=== PATIENT | female | born 1965 | race African-American/Black ===

== ENCOUNTER 2016-08-02 15:37 | Emergency (ER) | payer OTHER ==
[~2016-08-02] VITALS: Ht 177.8 cm; Wt 103.9 kg
[~2016-08-02 15:37] MED LIST: ACETAMINOPHEN-1 EAC1 ORAL; ALBUTEROL SULF8.5 GM INH; AMOXICILLIN500 MG ORAL; CLINDAMYCIN HC300 MG ORAL; IBUPROFEN600 MG ORAL; MEDROL DOSEPAK4 MG ORAL; NORCO 5-325 TA1 EACH ORAL; PEPCID AC20 M2 PO; PREDNISONE20 MG ORAL; ROBAXIN-750750 MG PO; ZOFRAN ODT4 MG ORAL
[2016-08-02 16:00] VITALS: BP 143/90
[2016-08-02] MEDS ORDERED: DiphenhydrAMINE 50mg/ml Inj IM ONE (16:00)
[2016-08-02] MEDS ORDERED: PredniSONE 20mg tab ORAL ONE (16:00)
[2016-08-02] MEDS ORDERED: BENADRYL25 MG ORAL (16:30)
[2016-08-02] MEDS ORDERED: PREDNISONE20 MG ORAL (16:30)
[2016-08-02 16:33] VITALS: BP 143/90
--- NOTE | 2016-08-02 17:50 | Emergency Room Report ---
History of Present Illness General Chief Complaint: Allergic Reaction Present Illness HPI The patient is a 50-year-old female presenting for possible allergic reaction. The patient states that she used a new hair dye 2 days prior and noticed that her face had swollen yesterday. The pt also admits to itching of the scalp and face. The patient states that she took one Benadryl which did help with the symptoms. The patient denies any prior allergic reaction to the product. The pt denies any pain. The patient denies using any other new products or ingesting any new foods that may have caused this reaction. The patient denies any other symptoms the rest of her body. Pt denies N, V, F, chills, cough, SOB, wheezing, CP Allergies: Coded Allergies: SHELLFISH DERIVED (Verified Allergy, 08/02/13) Patient History Past Medical History: see triage record Pertinent Family History: none Reviewed Nursing Documentation: PMH: Agreed, PSxH: Agreed Nursing Documentation-PMH Hx Asthma: Yes Review of Systems All Other Systems: negative except mentioned in HPI Physical Exam Vital Signs Date Time Temp Pulse Resp B/P Pulse Ox O2 Delivery O2 Flow Rate FiO2 08/02/16 15:44 98.2 81 20 143/90 97 Room Air Sp02 EP Interpretation: reviewed, normal General Appearance: no apparent distress, alert, GCS 15, non-toxic Head: normocephalic, atraumatic Eyes: bilateral eye PERRL, bilateral eye normal inspection ENT: hearing grossly normal, normal pharynx, no angioedema, normal voice, uvula midline, moist mucus membranes Neck: normal inspection, full range of motion, supple, supple/symm/no masses Respiratory: chest non-tender, lungs clear, normal breath sounds, no rhonchi, no respiratory distress, no accessory muscle use, no wheezing, speaking full sentences Cardiovascular #1: regular rate, rhythm, no murmur, no rub Gastrointestinal: normal bowel sounds, non tender, soft, non-distended, no guarding, no rebound Musculoskeletal: back normal, gait/station normal, normal range of motion, non- tender, calf tenderness Neurologic: alert, oriented x3, responsive, motor strength/tone normal, sensory intact, speech normal Psychiatric: judgement/insight normal, memory normal, mood/affect normal, no suicidal/homicidal ideation Skin: well hydrated, rash - erythema over scalp, other - edema periorbitally and over cheeks Lymphatic: no adenopathy Medical Decision Making PA Attestation Dr. Juarez is my supervising physician. Patient management was discussed with my supervising physician Diagnostic Impression: Primary Impression: Allergic reaction ER Course The patient is a 50-year-old female presenting for possible allergic reaction. Differential diagnosis considered: contact dermatitis, anaphylaxis, allergic rhinitis, asthma PE: vitals WNL. NAD There is erythema over the scalp diffusely. Edema periorbitally and of cheeks. No hives. No edema to neck. Oropharynx is patent. Lungs CTA bilat. The pt was given benadryl and prednisone and states she is feeling better. The patient be discharged home with the same medications. ER precautions are given and the patient will follow up with primary care Last Vital Signs Date Time Temp Pulse Resp B/P Pulse Ox O2 Delivery O2 Flow Rate FiO2 08/02/16 16:33 98.2 20 143/90 97 Room Air 08/02/16 15:44 81 Status: improved Disposition: HOME, SELF-CARE Condition: Improved Scripts Diphenhydramine Hcl* (BENADRYL*) 25 Mg Capsule 25 MG ORAL Q6H Y for Itching, #30 CAP Prov: TEX DAI.A. 08/02/16 Prednisone* (PREDNISONE*) 20 Mg Tablet 20 MG ORAL DAILY, #5 TAB 0 Refills Prov: TEX DAI P.A. 08/02/16 Referrals: [facility],REFERRING (PCP) Patient Instructions: Pruritus Additional Instructions: I discussed my findings with the patient. All questions and concerns have been answered. Treatment and medication compliance have been addressed. I advised the patient that they need to follow up with PMD in 3-5 days. Return to ED if symptoms worsen, new symptoms arise, or if needed for any reason. Patient verbalized understanding of discharge instructions. TEX DAI Aug 02, 2016 17:50
== END 2016-08-02 16:36 | disposition home or self-care (01) ==
LOC: EMR 16:05
DX: T78.40XA Allergy, unspecified, initial encounter (principal); J45.909 Unspecified asthma, uncomplicated; Z91.013 Allergy to seafood; X58.XXXA Exposure to other specified factors, initial encounter; Y92.9 Unspecified place or not applicable; Y99.8 Other external cause status
CPT/HCPCS: 96372; 99283; J1200

== ENCOUNTER 2016-12-19 18:23 | Emergency (ER) | payer OTHER ==
[~2016-12-19] VITALS: Ht 167.6 cm; Wt 104.3 kg
[~2016-12-19 18:23] MED LIST changes: +BENADRYL25 MG ORAL
[2016-12-19] MEDS ORDERED: Solu-MEDROL 125mg Inj IVP ONE (18:45)
[2016-12-19] MEDS ORDERED: Ipratropium 0.02% Inh Soln 2.5ml UD HHN ONE (18:45)
[2016-12-19] MEDS ORDERED: Albuterol ud Inhalation HHN ONE (18:45)
[2016-12-19 18:56] VITALS: BP 153/80
[2016-12-19 19:09] LABS: BASOPHILS % (AUTO) 2.5 % (0.0-2.0); EOSINOPHILS % (AUTO) 6.2 % (0.0-3.0); LYMPHOCYTES % (AUTO) 22.7 % (20.0-45.0); MEAN CORPUSCULAR HEMOGLOBIN 30.6 PG (27.0-31.0); MEAN CORPUSCULAR HGB CONC 32.6 G/DL (32.0-36.0); MEAN CORPUSCULAR VOLUME 94 FL (80-99); MEAN PLATELET VOLUME 6.2 FL (6.5-10.1); MONOCYTES % (AUTO) 6.5 % (1.0-10.0); NEUTROPHILS % (AUTO) 62.1 % (45.0-75.0); PLATELET COUNT 351 K/UL (150-450); RED BLOOD COUNT 4.28 M/UL (4.20-5.40); RED CELL DISTRIBUTION WIDTH 12.5 % (11.6-14.8); WHITE BLOOD COUNT 7.7 K/UL (4.8-10.8)
[2016-12-19 19:24] VITALS: BP 145/91
[2016-12-19 19:39] LABS: TROPONIN I < 0.30 ng/mL (<=0.30)
[2016-12-19 19:42] LABS: ALANINE AMINOTRANSFERASE 15 U/L (3-33); ALBUMIN/GLOBULIN RATIO 1.1 (1.0-2.7); ANION GAP 18 (5-15); ASPARTATE AMINO TRANSFERASE 15 U/L (5-40); CALCIUM 9.2 mg/dL (8.6-10.2); CARBON DIOXIDE 24 mEQ/L (20-30); CHLORIDE 95 mEQ/L (98-107); CREATININE 0.8 mg/dL (0.5-0.9); GLOMERULAR FILTRATION RATE > 60 mL/min (>60); HEMOLYSIS 0; POTASSIUM 3.9 mEQ/L (3.4-4.9); SODIUM 137 mEQ/L (135-145); TOTAL PROTEIN 7.6 g/dL (6.6-8.7)
[2016-12-19 19:53] LABS: CKMB 2.5 ng/mL (< 3.8)
[2016-12-19] MEDS ORDERED: ALBUTEROL2.5 MG/3 M HHN (20:02)
[2016-12-19] MEDS ORDERED: AZITHROMYCIN250 MG ORAL (20:02)
[2016-12-19] MEDS ORDERED: PREDNISONE20 MG ORAL (20:02)
[2016-12-19 20:12] VITALS: BP 145/91
--- NOTE | 2016-12-19 20:37 | Emergency Room Report ---
History of Present Illness General Chief Complaint: Chest Pain Source: Patient Present Illness HPI Patient presents with complaints of cough and congestion Patient reports that with the URI symptoms she has had increased use of her albuterol inhaler Having increased asthma exacerbation Patient has sick contacts Denies any neck pain or photophobia Denies any obvious fevers Patient had chest discomfort which sounds to be respiratory in pathology Denies any pleurisy Denies any recent travel or unilateral calf swelling Allergies: Coded Allergies: SHELLFISH DERIVED (Verified Allergy, 08/02/13) Patient History Past Medical History: see triage record Pertinent Family History: none Reviewed Nursing Documentation: PMH: Agreed, PSxH: Agreed Nursing Documentation-PMH Hx Asthma: Yes Review of Systems All Other Systems: negative except mentioned in HPI Physical Exam Vital Signs Date Time Temp Pulse Resp B/P Pulse Ox O2 Delivery O2 Flow Rate FiO2 12/19/16 18:50 82 20 99 Room Air 21 12/19/16 18:56 153/80 2.0 12/19/16 18:56 98.3 Sp02 EP Interpretation: reviewed, normal General Appearance: no apparent distress Head: normocephalic, atraumatic Eyes: bilateral eye EOMI, bilateral eye PERRL ENT: hearing grossly normal, normal pharynx, TMs + canals normal, uvula midline Neck: full range of motion, supple, no meningismus, no bony tend Respiratory: no rhonchi, no respiratory distress, no retraction, no accessory muscle use, wheezing - Fine wheezing in both lower lobes Cardiovascular #1: normal peripheral pulses, regular rate, rhythm, no gallop, no JVD, no murmur Gastrointestinal: normal bowel sounds, non tender, soft, no mass, no organomegaly, non-distended, no guarding, no hernia, no pulsatile mass, no rebound Genitourinary: no CVA tenderness Musculoskeletal: normal inspection Neurologic: oriented x3, responsive, principal archaeologist III-XII nml as tested, motor strength/ tone normal, sensory intact Psychiatric: mood/affect normal Skin: normal color, no rash, warm/dry, palpation normal Lymphatic: normal inspection, no adenopathy Medical Decision Making Diagnostic Impression: Primary Impression: atypical pneumonia ER Course Patient is a fairly complex patient with multiple differential to consideration including but not limited to cardiac cardiopulmonary and vascular emergencies Patient's chest x-ray does not show any obvious acute pathology Blood work is at baseline levels Patient's discomfort sounds to be more in line with infectious/pulmonary pathology than cardiac pain Remains hemodynamically stable In the distant will have initial conservative outpatient trial Labs Test 12/19/16 18:50 White Blood Count 7.7 K/UL (4.8-10.8) Red Blood Count 4.28 M/UL (4.20-5.40) Hemoglobin 13.1 G/DL (12.0-16.0) Hematocrit 40.2 % (37.0-47.0) Mean Corpuscular Volume 94 FL (80-99) Mean Corpuscular Hemoglobin 30.6 PG (27.0-31.0) Mean Corpuscular Hemoglobin Concent 32.6 G/DL (32.0-36.0) Red Cell Distribution Width 12.5 % (11.6-14.8) Platelet Count 351 K/UL (150-450) Mean Platelet Volume 6.2 FL (6.5-10.1) Neutrophils (%) (Auto) 62.1 % (45.0-75.0) Lymphocytes (%) (Auto) 22.7 % (20.0-45.0) Monocytes (%) (Auto) 6.5 % (1.0-10.0) Eosinophils (%) (Auto) 6.2 % (0.0-3.0) Basophils (%) (Auto) 2.5 % (0.0-2.0) Sodium Level 137 mEQ/L (135-145) Potassium Level 3.9 mEQ/L (3.4-4.9) Chloride Level 95 mEQ/L (98-107) Carbon Dioxide Level 24 mEQ/L (20-30) Anion Gap 18 (5-15) Blood Urea Nitrogen 12 mg/dL (7-23) Creatinine 0.8 mg/dL (0.5-0.9) Estimat Glomerular Filtration Rate > 60 mL/min (>60) Glucose Level 91 mg/dL (74-106) Calcium Level 9.2 mg/dL (8.6-10.2) Total Bilirubin < 0.2 mg/dL (0.0-1.2) Aspartate Amino Transf (AST/SGOT) 15 U/L (5-40) Alanine Aminotransferase (ALT/SGPT) 15 U/L (3-33) Alkaline Phosphatase 63 U/L (35-104) Total Creatine Kinase 229 U/L (26-140) Creatine Kinase MB 2.5 ng/mL (< 3.8) Creatine Kinase MB Relative Index 1.0 Troponin I < 0.30 ng/mL (<=0.30) Pro-B-Type Natriuretic Peptide 16 pg/mL (0-125) Total Protein 7.6 g/dL (6.6-8.7) Albumin 4.1 g/dL (3.5-5.2) Globulin 3.5 g/dL Albumin/Globulin Ratio 1.1 (1.0-2.7) EKG Diagnostic Results Rate: normal Rhythm: NSR ST Segments: other - Nonspecific ST and T-wave changes, including flipped t wave in I and avL, flat t's laterally Rhythm Strip Diag. Results EP Interpretation: yes Rate: 77 Rhythm: NSR, no PVC's, no ectopy Chest X-Ray Diagnostic Results Chest X-Ray Ordered: Yes # of Views/Limited/Complete: 1 View Interpretation: no consolidation, no effusion, no pneumothorax, other - Nonspecific markings in the right lower lobe, likely physiological daja Indication: Shortness of Breath Impression: No acute disease Date Electronically Signed: Dec 19, 2016 Time Electronically Signed: 20:[address] Mendoza Last Vital Signs Date Time Temp Pulse Resp B/P Pulse Ox O2 Delivery O2 Flow Rate FiO2 12/19/16 20:12 98.3 99 21 145/91 97 Nasal Cannula 2.0 21 Status: improved Disposition: HOME, SELF-CARE Condition: Improved Scripts Prednisone* (PREDNISONE*) 20 Mg Tablet 20 MG ORAL BID, #8 TAB Prov: IRVING MENDOZA D.O. 12/19/16 Albuterol Sulfate* (ALBUTEROL SULFATE HHN*) 2.5 Mg/3 Ml Vial.neb 2.5 MG HHN Q4H Y for Shortness of Breath, #25 VIAL Prov: IRVING MENDOZA D.O. 12/19/16 Azithromycin* (ZITHROMAX*) 250 Mg Tablet 250 MG ORAL DAILY, #6 TAB 0 Refills Take two tablets by mouth today, then take one tablet by mouth daily for four days Prov: IRVING MENDOZA D.O. 12/19/16 Referrals: [facility],REFERRING (PCP) Patient Instructions: Community-Acquired Pneumonia, Adult Additional Instructions: Patient is provided with the discharge instructions notified to follow up with primary doctor in the next 2-3 days otherwise return to the er with any worsening symptoms. Please note that this report is being documented using [employer] technology. This can lead to erroneous entry secondary to incorrect interpretation by the dictating instrument. IRVING MENDOZA D.O. Dec 19, 2016 20:37
--- NOTE | 2016-12-21 08:16 | Cardiology Report ---
APPROVED REPORT EKG Measurement Heart [id number] Suspect arm lead reversal, interpretation assumes no reversal Normal sinus rhythm with sinus arrhythmia Right superior axis deviation Abnormal ECG
--- NOTE | 2016-12-21 11:26 | Diagnostic Imaging Report ---
Indication: SOB Technique: One view of the chest Comparison: none Findings: Lungs and pleural spaces are clear. Heart size is normal. Impression: No acute process
== END 2016-12-19 20:14 | disposition home or self-care (01) ==
LOC: EMR 18:40
DX: J18.9 Pneumonia, unspecified organism (principal); J45.909 Unspecified asthma, uncomplicated; Z91.013 Allergy to seafood
CPT/HCPCS: 36415; 71010; 80053; 82550; 82553; 83880; 84484; 85025; 93005; 94640; 94664; 96374; 99284; J2930

== ENCOUNTER 2017-01-30 19:26 | Emergency (ER) | payer OTHER ==
[~2017-01-30] VITALS: Ht 157.5 cm; Wt 104.3 kg
[~2017-01-30 19:26] MED LIST changes: +ALBUTEROL2.5 MG/3 M HHN; +AZITHROMYCIN250 MG ORAL
--- NOTE | 2017-01-30 19:52 | Emergency Room Report ---
History of Present Illness General Chief Complaint: Edema Source: Patient Present Illness HPI Is a 51-year-old female with history of asthma. She presents with chief complaint of right leg swelling for last 3 weeks. She's eating worse. Her Dr. been treating her as arthritis with cream. Patient said swelling is worse but it is a day. Better with rest. Generalize pain. No fever or chills. No nausea no vomiting. Denies any other complaint. Pain is 7/10. No shortness of breath. No family history of DVT or PE. No control pill. Allergies: Coded Allergies: SHELLFISH DERIVED (Verified Allergy, 08/02/13) Patient History Past Medical History: see triage record, old chart reviewed, asthma Past Surgical History: other Pertinent Family History: none Social History: Denies: smoking Last Menstrual Period: January Now: No Immunizations: other Reviewed Nursing Documentation: PMH: Agreed, PSxH: Agreed Nursing Documentation-PMH Hx Asthma: Yes Hx Gastrointestinal Problems: Yes - ACID REFLUX Review of Systems Eye: Denies: blurred vision, eye pain ENT: Denies: ear pain, nose congestion, throat swelling Respiratory: Denies: cough, shortness of breath Cardiovascular: Denies: chest pain, palpitations Gastrointestinal: Denies: abdominal pain, diarrhea, nausea, vomiting Musculoskeletal: Denies: back pain, joint pain Skin: Denies: rash Neurological: Denies: headache, numbness Endocrine: Denies: increased thirst, increased urine Hematologic/Lymphatic: Denies: easy bruising All Other Systems: negative except mentioned in HPI Physical Exam Vital Signs Date Time Temp Pulse Resp B/P Pulse Ox O2 Delivery O2 Flow Rate FiO2 01/30/17 19:36 97.5 85 16 134/85 96 Room Air vitals normal Sp02 EP Interpretation: reviewed, normal General Appearance: well appearing, no apparent distress, alert Head: normocephalic, atraumatic Eyes: bilateral eye EOMI, bilateral eye PERRL ENT: hearing grossly normal, normal pharynx Neck: full range of motion, supple, no meningismus Respiratory: chest non-tender, lungs clear, normal breath sounds Cardiovascular #1: regular rate, rhythm, no murmur Gastrointestinal: normal bowel sounds, non tender, no mass, no organomegaly, no bruit, non-distended Musculoskeletal: back normal, gait/station normal, normal range of motion, other - Right leg [id number] form swelling compared to the left. None pitting edema. She does have varicose vein along the anterior tibial area. Psychiatric: mood/affect normal Skin: warm/dry Medical Decision Making Diagnostic Impression: Primary Impression: Leg edema, right Additional Impression: Encounter for medication refill ER Course Patient presents with lower extremity pain and edema. Most likely secondary to varicose vein. No evidence of DVT. Studies negative. We'll discharge him. CT/MRI/US Diagnostic Results CT/MRI/US Diagnostic Results : Imaging Test Ordered: Ultrasound right lower extremity Impression negative for DVT per cigarette tester. Last Vital Signs Date Time Temp Pulse Resp B/P Pulse Ox O2 Delivery O2 Flow Rate FiO2 01/30/17 19:36 97.5 85 16 134/85 96 Room Air Status: improved Disposition: HOME, SELF-CARE Condition: Stable Scripts Albuterol Sulfate* (ALBUTEROL SULFATE MDI*) 8.5 Gm Hfa.aer.ad 2 PUFF INH Q4H Y for cough/wheezing, #1 EA 0 Refills Prov: SAIDA LAWRENCE M.D. 01/30/17 Furosemide* (LASIX*) 20 Mg Tablet 20 MG ORAL DAILY, #7 TAB Prov: SAIDA LAWRENCE M.D. 01/30/17 Hydrocodone/Acetaminophen 5-325* (HYDROCODONE/ACETAMINOPHEN 5-325*) 1 Each Tablet 1 TAB ORAL Q6H Y for For Pain, #20 TAB 0 Refills Prov: SAIDA LAWRENCE M.D. 01/30/17 Patient Instructions: Edema, [id number] Additional Instructions: Followup with your DrFatimah in 7 days. Return if symptom worsen. SAIDA LAWRENCE M.D. Jan 30, 2017 19:52
[2017-01-30 20:55] VITALS: BP 135/87
[2017-01-30 21:00] VITALS: BP 135/87
[2017-01-30] MEDS ORDERED: FUROSEMIDE20 M1 ORAL (21:00)
[2017-01-30] MEDS ORDERED: HYDROCODON-ACE1 EA15 ORAL (21:00)
[2017-01-30] MEDS ORDERED: ALBUTEROL SULF8.5 GM INH (21:00)
--- NOTE | 2017-02-01 12:27 | Diagnostic Imaging Report ---
APPROVED REPORT CPT Code: 51109 Present Symptoms Lower Extremity Pain: Right RIGHT LEG: Imaging reveals a patent deep venous system . There is no evidence of thrombus within the femoral, popliteal or tibial segments. The greater saphenous veins are also within normal limits. Doppler indicates normal spontaneous flow within these segments.
== END 2017-01-30 21:00 | disposition home or self-care (01) ==
LOC: EMR 20:10
DX: R60.0 Localized edema (principal); Z76.0 Encounter for issue of repeat prescription; J45.909 Unspecified asthma, uncomplicated; K21.9 Gastro-esophageal reflux disease without esophagitis; Z91.013 Allergy to seafood; M19.90 Unspecified osteoarthritis, unspecified site
CPT/HCPCS: 93971; 99284

== ENCOUNTER 2017-12-19 17:29 | Emergency (ER) | payer OTHER ==
[~2017-12-19] VITALS: Ht 157.5 cm; Wt 108.0 kg
[~2017-12-19 17:29] MED LIST changes: +FUROSEMIDE20 M1 ORAL; +HYDROCODON-ACE1 EA15 ORAL
[2017-12-19 18:00] VITALS: BP 133/84
--- NOTE | 2017-12-19 18:50 | Emergency Room Report ---
History of Present Illness General Chief Complaint: Skin Rash/Abscess Source: Patient, Medical Record Present Illness HPI 52-year-old female presents to the emergency department complaining of severely itchy rash to the bilateral wrists, fingers and with radiation up bilateral upper extremities. Patient reports history of eczema however she states that she also is noticing some markings that are not consistent with previous episodes of eczema flare. 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 Denies fevers or chills. Denies new medications or body washes or creams. Denies swelling of the lips, tongue , throat or airway. Denies wheezing, or shortness of breath. Denies recent travel , recent illness or ill contacts. denies blisters, oral lesions, or sloughing of the skin. Allergies: Coded Allergies: SHELLFISH DERIVED (Verified Allergy, 08/02/13) Patient History Past Medical History: see triage record Past Surgical History: none Pertinent Family History: none Last Menstrual Period: 11/12/17 Now: No Immunizations: UTD Reviewed Nursing Documentation: PMH: Agreed; PSxH: Agreed Nursing Documentation-PMH Past Medical History: No History, Except For Hx Asthma: Yes Hx Gastrointestinal Problems: Yes - ACID REFLUX Review of Systems All Other Systems: negative except mentioned in HPI Physical Exam Vital Signs Date Time Temp Pulse Resp B/P (MAP) Pulse Ox O2 Delivery O2 Flow Rate FiO2 12/19/17 17:43 97.8 70 18 133/84 95 Room Air 97.9 Sp02 EP Interpretation: reviewed, normal General Appearance: no apparent distress, alert, GCS 15, non-toxic Head: normocephalic, atraumatic ENT: hearing grossly normal, no angioedema, normal voice, other - no swelling of the lips or tongue Neck: full range of motion Respiratory: chest non-tender, lungs clear, normal breath sounds, no respiratory distress, no wheezing, speaking full sentences Cardiovascular #1: regular rate, rhythm, normal capillary refill Musculoskeletal: back normal, gait/station normal, normal range of motion, non- tender Neurologic: alert, oriented x3, responsive, motor strength/tone normal, sensory intact, normal gait, speech normal, grossly normal Psychiatric: judgement/insight normal Skin: normal color, warm/dry, well hydrated, rash - Hyperpigmented plaques noted on the dorsum of bilateral hands and bilateral elbows. Discrete papules noted in the interdigital labs as well as bilateral wrists and some radiation up towards the elbows. Several discrete papules also noted on the anterior chest. Many excoriations are noted., other - no blisters or vesicles Lymphatic: no adenopathy Medical Decision Making PA Attestation Dr. Rushing is my supervising physician whom pt. management has been discussed with. Diagnostic Impression: Primary Impression: Eczema, dyshidrotic ER Course 52-year-old female presents to the emergency department complaining of severely itchy rash to the bilateral wrists, fingers and with radiation up bilateral upper extremities. Patient reports history of eczema however she states that she also is noticing some markings that are not consistent with previous episodes of eczema flare. 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 Denies fevers or chills. Denies new medications or body washes or creams. Denies swelling of the lips, tongue , throat or airway. Denies wheezing, or shortness of breath. Denies recent travel , recent illness or ill contacts. denies blisters, oral lesions, or sloughing of the skin. Ddx considered but are not limited to cellulitis, scabies, shingles, varicella, dermatitis, urticaria, eczema, tinea, viral exanthem, SJS Vital signs: are WNL, pt. is afebrile H&PE are most consistent with Dyshidrotic eczema, and possible scabies, will treat for both. ORDERS: none required at this time, the diagnosis is clinical ED INTERVENTIONS: None required at this time. d/w pt. conservative treatment, and to follow up with a primary care provider for [employer] referral. pt given a list of primary care clinics for follow up. d/w pt. to return to the ED with worsening or new symptoms. DISCHARGE: At this time pt. is stable for d/c to home. Will provide printed patient care instructions, and any necessary prescriptions. Care plan and follow up instructions have been discussed with the patient prior to discharge. Last Vital Signs Date Time Temp Pulse Resp B/P (MAP) Pulse Ox O2 Delivery O2 Flow Rate FiO2 12/19/17 17:43 97.8 70 18 133/84 95 Room Air 97.9 Disposition: HOME, SELF-CARE Condition: Stable Scripts Triamcinolone Acet (Triamcinolone Acetonide) 15 Gm Cream..g. 1 APPLIC APPLIC BID, #30 GM Prov: Dhara Manrique 12/19/17 Permethrin* (ELIMITE*) 60 Gm Cream..g. 1 APPLIC TOPIC ONCE, #60 GM 0 Refills Apply cream from head to toe; leave on for 8-14 hours before washing off with water; may reapply in 1 week if live mites appear. Prov: Dhara Manrique 12/19/17 Prednisone* (PREDNISONE*) 20 Mg Tablet 40 MG ORAL DAILY for 5 Days, #10 TAB Prov: Dhara Manrique 12/19/17 Patient Instructions: Eczema Additional Instructions: Take medications as directed. Follow up with a [employer] in 3-5 days, even if your symptoms have resolved. --Please review list of primary care clinics, if you do not already have a primary care provider Return sooner to ED if new symptoms occur, or current symptoms become worse. Do not drink alcohol, drive, or operate heavy machinery while taking Hydroxyzine as this may cause drowsiness. - Please note that this Emergency Department Report was dictated using [employer] technology software, occasionally this can lead to erroneous entry secondary to interpretation by the dictation equipment. Dhara Manrique Dec 19, 2017 18:50
[2017-12-19] MEDS ORDERED: PERMETHRIN60 GM TOPIC (18:52)
[2017-12-19] MEDS ORDERED: PREDNISONE20 MG ORAL (18:52)
[2017-12-19] MEDS ORDERED: KENALOG 0.5% CR15 GM APPLIC (18:52)
[2017-12-19 19:34] VITALS: BP 133/84
[2017-12-20] MEDS ORDERED: ATARAX25 MG ORAL (18:13)
== END 2017-12-19 19:34 | disposition home or self-care (01) ==
LOC: EMR 18:45
DX: L30.1 Dyshidrosis [pompholyx] (principal); J45.909 Unspecified asthma, uncomplicated; K21.9 Gastro-esophageal reflux disease without esophagitis
CPT/HCPCS: 99284

== ENCOUNTER 2018-08-22 13:53 | Emergency (ER) | payer OTHER ==
[~2018-08-22] VITALS: Ht 157.5 cm; Wt 103.9 kg
[~2018-08-22 13:53] MED LIST changes: +ATARAX25 MG ORAL; +KENALOG 0.5% CR15 GM APPLIC; +PERMETHRIN60 GM TOPIC
--- NOTE | 2018-08-22 14:20 | NUR ---
ED Nurse Note: walked in to ED due to pain on left shoulder for couple days. no recent injury. patient is alert and oriented x4, ambulatory with a steady gait, VSS
[2018-08-22 14:31] VITALS: BP 142/72
--- NOTE | 2018-08-22 15:09 | Emergency Room Report ---
History of Present Illness General Chief Complaint: Shoulder Injury Source: Medical Record (Dhara Manrique) Present Illness HPI 52-year-old female presents to the emergency department complaining of 7 out of 10 in severity pain in the left shoulder that she localizes to be anteriorly and on the top of her shoulder with radiation down the left arm. Patient reports pain is exacerbated upon attempts to raise her arm. Patient reports some weakness in the affected extremity. Patient reports history of previous shoulder soft tissue injury years ago from an accident she states she did not ever have any surgery. Patient denies new trauma or fall she states that this pain is different in character to what she has experienced in the past. Patient states that has been going for 3 days which has begun to concern her as normally her shoulder pain will come and go and is usually affected by cold weather. Denies CP, Palpitations, LOC, AMS, dizziness, Changes in Vision, Sensation, paresthesias, or a sudden severe headache. Denies pmhx other than HTN. (Dhara Manrique) Allergies: Coded Allergies: SHELLFISH DERIVED (Verified Allergy, 08/02/13) Patient History Past Medical History: see triage record Past Surgical History: none Pertinent Family History: none Last Menstrual Period: couple months ago Now: No Reviewed Nursing Documentation: PMH: Agreed; PSxH: Agreed (Dhara Manrique) Nursing Documentation-PMH Past Medical History: No History, Except For Hx Asthma: Yes Hx Gastrointestinal Problems: Yes - ACID REFLUX (Dhara Manrique) Review of Systems All Other Systems: negative except mentioned in HPI (Dhara Manrique) Physical Exam Vital Signs Date Time Temp Pulse Resp B/P (MAP) Pulse Ox O2 Delivery O2 Flow Rate FiO2 08/22/18 14:15 97.9 71 18 156/80 99 Room Air Sp02 EP Interpretation: reviewed, normal General Appearance: alert, GCS 15, non-toxic, mild distress Head: normocephalic, atraumatic Eyes: bilateral eye normal inspection, bilateral eye PERRL ENT: hearing grossly normal, normal voice Neck: full range of motion Respiratory: chest non-tender, lungs clear, normal breath sounds, speaking full sentences Cardiovascular #1: regular rate, rhythm, normal capillary refill Cardiovascular #2: 2+ radial (R), 2+ radial (L) Gastrointestinal: normal bowel sounds, non tender, soft Musculoskeletal: back normal, gait/station normal, normal range of motion, tender - TTP to anterior shoulder, unable to perform lift off test. pt. has normal strength bilaterally. Neurologic: alert, oriented x3, responsive, motor strength/tone normal, sensory intact, speech normal, grossly normal Psychiatric: judgement/insight normal Skin: normal color, no rash, warm/dry, well hydrated Lymphatic: no adenopathy (Dhara Manrique) Medical Decision Making PA Attestation Dr. Luna is my supervising Physician whom patient management has been discussed with. (Dhara Manrique) Diagnostic Impression: Primary Impression: Soft tissue injury of shoulder Qualified Codes: S49.92XA - Unspecified injury of left shoulder and upper arm , initial encounter Additional Impression: Rotator cuff injury Qualified Codes: S46.002A - Unspecified injury of muscle(s) and tendon(s) of the rotator cuff of left shoulder, initial encounter ER Course 52-year-old female presents to the emergency department complaining of 7 out of 10 in severity pain in the left shoulder that she localizes to be anteriorly and on the top of her shoulder with radiation down the left arm. Patient reports pain is exacerbated upon attempts to raise her arm. Patient reports some weakness in the affected extremity. Patient reports history of previous shoulder soft tissue injury years ago from an accident she states she did not ever have any surgery. Patient denies new trauma or fall she states that this pain is different in character to what she has experienced in the past. Patient states that has been going for 3 days which has begun to concern her as normally her shoulder pain will come and go and is usually affected by cold weather. Denies CP, Palpitations, LOC, AMS, dizziness, Changes in Vision, Sensation, paresthesias, or a sudden severe headache. Denies pmhx other than HTN. Ddx considered but are not limited to Fracture, dislocation, contusion, Sprain/ Strain/Spasm, rotator cuff injury, tear of labrum just to name a few. Vital signs: are WNL, pt. is afebrile H&PE are most consistent with musculoskeletal injury will perform imaging to r/ o fractures/dislocations. ORDERS: -CBC, CMP, CK, Troponin, D-Dimer: WNL / Unremarkable - X-ray Left Shoulder 3 - negative for fx, Dislocation, or significant soft tissue injury, per preliminary read in ED, and signed by LORETTA Manrique, my supervising physician has reviewed, and agrees with my interpretation. ED INTERVENTIONS: -Toradol IM - Tylenol #3 PO DISCHARGE: At this time pt. is stable for d/c to home. Will provide printed patient care instructions, and any necessary prescriptions. Care plan and follow up instructions have been discussed with the patient prior to discharge. Labs Test 08/22/18 15:30 White Blood Count 5.0 K/UL (4.8-10.8) Red Blood Count 4.42 M/UL (4.20-5.40) Hemoglobin 13.6 G/DL (12.0-16.0) Hematocrit 42.3 % (37.0-47.0) Mean Corpuscular Volume 96 FL (80-99) Mean Corpuscular Hemoglobin 30.7 PG (27.0-31.0) Mean Corpuscular Hemoglobin Concent 32.1 G/DL (32.0-36.0) Red Cell Distribution Width 12.6 % (11.6-14.8) Platelet Count 330 K/UL (150-450) Mean Platelet Volume 6.0 FL (6.5-10.1) Neutrophils (%) (Auto) 43.2 % (45.0-75.0) Lymphocytes (%) (Auto) 43.6 % (20.0-45.0) Monocytes (%) (Auto) 7.8 % (1.0-10.0) Eosinophils (%) (Auto) 2.7 % (0.0-3.0) Basophils (%) (Auto) 2.7 % (0.0-2.0) D-Dimer 0.38 mg/L FEU (0.00-0.49) Sodium Level 138 MMOL/L (136-145) Potassium Level 5.1 MMOL/L (3.5-5.1) Chloride Level 102 MMOL/L (98-107) Carbon Dioxide Level 28 MMOL/L (21-32) Anion Gap 8 mmol/L (5-15) Blood Urea Nitrogen 9 mg/dL (7-18) Creatinine 0.8 MG/DL (0.55-1.30) Estimat Glomerular Filtration Rate > 60 mL/min (>60) Glucose Level 92 MG/DL (74-106) Calcium Level 9.2 MG/DL (8.5-10.1) Total Bilirubin 0.4 MG/DL (0.2-1.0) Aspartate Amino Transf (AST/SGOT) 30 U/L (15-37) Alanine Aminotransferase (ALT/SGPT) 20 U/L (12-78) Alkaline Phosphatase 66 U/L (46-116) Total Creatine Kinase 214 U/L (26-308) Troponin I 0.000 ng/mL (0.000-0.056) Total Protein 8.2 G/DL (6.4-8.2) Albumin 3.4 G/DL (3.4-5.0) Globulin 4.8 g/dL Albumin/Globulin Ratio 0.7 (1.0-2.7) (Dhara Manrique) EKG Diagnostic Results EP Interpretation: Dr. Long Rate: normal - 61 BPM Rhythm: NSR ST Segments: other - inverted T-wave abnormality in inferior leads. ASA given to the pt in ED: No PA Scribe Text This Interpretation was scribed by LORETTA Manrique. (Dhara Manrique) Other X-Ray Diagnostic Results Other X-Ray Diagnostic Results : X-Ray ordered: Left Shoulder # of Views/Limited Vs Complete: 3 View Indication: Pain EP Interpretation: Yes PA Xray: Interpretation reviewed, by supervising MD, and agrees with findings. Interpretation: no dislocation, no soft tissue swelling, no fractures Impression: No acute disease Electronically Signed by: Dhara Manrique PA-C (Dhara Manrique) Other X-Ray Diagnostic Results : Electronically Signed by: Griffin French documentation of Xray reviewed by me and is accurate, Wally Luna MD (Wally Luna MD) Last Vital Signs Date Time Temp Pulse Resp B/P (MAP) Pulse Ox O2 Delivery O2 Flow Rate FiO2 08/22/18 14:15 97.9 71 18 156/80 99 Room Air Status: improved (Dhara Manrique) Disposition: HOME, SELF-CARE Condition: Stable Scripts Ibuprofen* (MOTRIN*) 600 Mg Tablet 600 MG ORAL THREE TIMES A DAY, #20 TAB 0 Refills Prov: Dhara Manrique 08/22/18 Acetaminophen With Codeine (T#3) (TYLENOL #3 TAB*) Y Tab 1 TAB ORAL Q6H PRN for For Pain, #15 TAB Prov: Dhara Manrique 08/22/18 Patient Instructions: Shoulder Pain Additional Instructions: Take medications as directed. Follow up with an TELEPHONIC NURSE CASE MANAGER in 3-5 days, even if your symptoms have resolved. If symptoms persist MRI may be required at the discretion of your PCP or Ortho Specialist. --Please review list of primary care clinics, if you do not already have a primary care provider who can give you an Orthopedic Referral. Return sooner to ED if new symptoms occur, or current symptoms become worse. Do not drink alcohol, drive, or operate heavy machinery while taking Tylenol # 3 as this may cause drowsiness. - Please note that this Emergency Department Report was dictated using [employer] patroller technology software, occasionally this can lead to erroneous entry secondary to interpretation by the dictation equipment. Dhara Manrique Aug 22, 2018 15:08 Wally Luna MD Aug 25, 2018 14:51
[2018-08-22] MEDS: Tylenol #3 tab (300mg/30mg) ORAL ONE (15:21)
[2018-08-22] MEDS: Ketorolac 30mg Inj IM ONE (15:23)
[2018-08-22 16:05] LABS: BASOPHILS % (AUTO) 2.7 % (0.0-2.0); EOSINOPHILS % (AUTO) 2.7 % (0.0-3.0); HEMATOCRIT 42.3 % (37.0-47.0); HEMOGLOBIN 13.6 G/DL (12.0-16.0); LYMPHOCYTES % (AUTO) 43.6 % (20.0-45.0); MEAN CORPUSCULAR VOLUME 96 FL (80-99); MONOCYTES % (AUTO) 7.8 % (1.0-10.0); NEUTROPHILS % (AUTO) 43.2 % (45.0-75.0); PLATELET COUNT 330 K/UL (150-450); RED BLOOD COUNT 4.42 M/UL (4.20-5.40); RED CELL DISTRIBUTION WIDTH 12.6 % (11.6-14.8)
--- NOTE | 2018-08-22 16:21 | Diagnostic Imaging Report ---
Indication: Left shoulder pain for 3 days Technique: 3 views of the left shoulder Comparison: none Findings: No acute fractures. No dislocations. The joint spaces are preserved Impression: Negative
[2018-08-22 16:27] LABS: ANION GAP 8 mmol/L (5-15); BLOOD UREA NITROGEN 9 mg/dL (7-18); CALCIUM 9.2 MG/DL (8.5-10.1); CARBON DIOXIDE 28 MMOL/L (21-32); CHLORIDE 102 MMOL/L (98-107); CREATININE 0.8 MG/DL (0.55-1.30); POTASSIUM 5.1 MMOL/L (3.5-5.1); SODIUM 138 MMOL/L (136-145)
[2018-08-22 16:31] LABS: ALANINE AMINOTRANSFERASE 20 U/L (12-78); ALBUMIN 3.4 G/DL (3.4-5.0); ALBUMIN/GLOBULIN RATIO 0.7 (1.0-2.7); ALKALINE PHOSPHATASE 66 U/L (46-116); ASPARTATE AMINO TRANSFERASE 30 U/L (15-37); BILIRUBIN,TOTAL 0.4 MG/DL (0.2-1.0); CREATINE KINASE 214 U/L (26-308)
[2018-08-22] MEDS ORDERED: IBUPROFEN600 MG ORAL (16:43)
[2018-08-22] MEDS ORDERED: ACETAMINOPHEN-1 EAC1 ORAL (16:43)
[2018-08-22 17:00] VITALS: BP 132/70
--- NOTE | 2018-08-22 17:00 | NUR ---
ED Nurse Note: A/Ox4. Pt is cleared by LORETTA Jules. DC instruction and prescriptions given, pt verbalized understanding. IV/ID wristband removed. All belongings taken by pt. Denies pain at this time. Pt ambulated out of ER with steady gait.
--- NOTE | 2018-08-23 16:58 | Cardiology Report ---
APPROVED REPORT EKG Measurement Heart [id number] Normal sinus rhythm Cannot rule out Anterior infarct, age undetermined Abnormal ECG
== END 2018-08-22 17:00 | disposition home or self-care (01) ==
LOC: EMR 14:30
DX: S46.002A Unspecified injury of muscle(s) and tendon(s) of the rotator cuff of left shoulder, initial encounter (principal); X58.XXXA Exposure to other specified factors, initial encounter; Y92.9 Unspecified place or not applicable; J45.909 Unspecified asthma, uncomplicated; K21.9 Gastro-esophageal reflux disease without esophagitis; Z91.013 Allergy to seafood
CPT/HCPCS: 36415; 73030; 80053; 82550; 84484; 85025; 85379; 93005; 96372; 99283; J1885

== ENCOUNTER 2019-01-15 19:12 | Emergency (ER) | payer BC, OTHER ==
[~2019-01-15] VITALS: Ht 157.5 cm; Wt 104.3 kg
[~2019-01-15 19:12] MED LIST changes: +CORICIDIN HBP1 EAC1 PO; +HYDROCORTISON28.4 G6 TP; +PROMETHAZINE-D118 ML ORAL; +TYLENOL COLD &1 EAC1 PO; +UNOBMED
[2019-01-15 19:40] VITALS: BP 148/98
--- NOTE | 2019-01-15 19:40 | NUR ---
ED Nurse Note: pt walked in c/o left shoulder pain radiating to left hand and left chest for past 2 wks. 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 pt AA&ox4, gcs=15, skin warm and dry, resp even and unlabored on RA, -n/v/d, ambulates w/ steady gait, vss, NSR on alarm security or surveillance monitor, will cont monitor. cms intact BUE. pt's at the bedside.
[2019-01-15] MEDS ORDERED: Morphine Sulfate 4mg/ml Inj (IV USE ONLY) IVP ONE (19:45)
[2019-01-15] MEDS ORDERED: Ketorolac 30mg Inj IV ONE (19:45)
--- NOTE | 2019-01-15 19:45 | NUR ---
ED Nurse Note: pt refused to take morphine, pt states it might be too strong for pt, ERMD notified, pt states she wants to take toradol first and see how she does with pain. pt advised to notify if pain persist, pt verbalized understanding and agrees with plan. lamin held as well.
--- NOTE | 2019-01-15 20:00 | NUR ---
ED Nurse Note: extra blanket provided for comfort. pt advised to notify staff if needed assist.
[2019-01-15] MEDS ORDERED: Morphine Sulfate 2mg/ml Inj(IV/IM USE ONLY) IVP ONE (20:15)
[2019-01-15 20:35] LABS: BASOPHILS % (AUTO) 2.1 % (0.0-2.0); EOSINOPHILS % (AUTO) 1.7 % (0.0-3.0); HEMATOCRIT 41.8 % (37.0-47.0); HEMOGLOBIN 13.6 G/DL (12.0-16.0); LYMPHOCYTES % (AUTO) 37.4 % (20.0-45.0); MEAN CORPUSCULAR VOLUME 94 FL (80-99); NEUTROPHILS % (AUTO) 51.8 % (45.0-75.0); PLATELET COUNT 397 K/UL (150-450); RED BLOOD COUNT 4.46 M/UL (4.20-5.40); RED CELL DISTRIBUTION WIDTH 12.3 % (11.6-14.8); WHITE BLOOD COUNT 6.1 K/UL (4.8-10.8)
[2019-01-15 20:35] LABS: APPEARANCE,URINE CLEAR; BILIRUBIN, URINE NEGATIVE (NEGATIVE); GLUCOSE, URINE (UA) NEGATIVE (NEGATIVE); KETONES,URINE 1+ (NEGATIVE); LEUKOCYTE ESTERASE ,URINE 1+ (NEGATIVE); NITRITE,URINE NEGATIVE (NEGATIVE); PH,URINE 5 (4.5-8.0); PROTEIN,URINE 1+ (NEGATIVE); UROBILINOGEN,URINE 1 MG/DL (0.0-1.0)
[2019-01-15 20:37] LABS: COLOR,URINE YELLOW
[2019-01-15 20:42] LABS: ANION GAP 9 mmol/L (5-15); BLOOD UREA NITROGEN 12 mg/dL (7-18); CALCIUM 9.5 MG/DL (8.5-10.1); CARBON DIOXIDE 30 MMOL/L (21-32); CHLORIDE 104 MMOL/L (98-107); CREATININE 0.9 MG/DL (0.55-1.30); POTASSIUM 3.3 MMOL/L (3.5-5.1); SODIUM 143 MMOL/L (136-145)
--- NOTE | 2019-01-15 20:45 | NUR ---
ED Nurse Note: pt states there's no change in pain after getting medication, ERMD notified.
[2019-01-15 20:53] LABS: ALANINE AMINOTRANSFERASE 22 U/L (12-78); ALBUMIN 3.9 G/DL (3.4-5.0); ALBUMIN/GLOBULIN RATIO 0.9 (1.0-2.7); ALKALINE PHOSPHATASE 68 U/L (46-116); ASPARTATE AMINO TRANSFERASE 15 U/L (15-37); BILIRUBIN,TOTAL 0.2 MG/DL (0.2-1.0); CREATINE KINASE 164 U/L (26-308)
[2019-01-15] MEDS ORDERED: oxyCODONE HCL/Acetaminophen 5/325mg ORAL ONE (21:00)
[2019-01-15 21:23] LABS: INR 0.9 (0.9-1.1)
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
[2019-01-15] MEDS ORDERED: CYCLOBENZAPRINE10 MG ORAL (21:28)
[2019-01-15] MEDS ORDERED: NORCO 5-325 TA1 EACH ORAL (21:28)
[2019-01-15] MEDS ORDERED: IBUPROFEN600 MG ORAL (21:28)
--- NOTE | 2019-01-15 21:36 | NUR ---
ED Nurse Note: pt cleared to be d/c per ERMD, pt discharge and aftercare instruction provided w/ prescription, pt education done via discussion and handout, pt advised to follow up with pcp or return to ed if changes in condition, pt vss, ambulatory w/ steady gait, iv d/c and id band removed, pt accompanied by , left w/ all belongings.
[2019-01-15 21:37] VITALS: BP 140/86
--- NOTE | 2019-01-16 11:16 | Diagnostic Imaging Report ---
Indication: Chest pain Technique: One view of the chest Comparison: 12/19/2016 Findings: Lungs and pleural spaces are clear. The heart size is upper limits of normal. There are degenerative proliferative changes of the thoracic spine. No significant interim change Impression: No acute process
--- NOTE | 2019-01-16 13:10 | Cardiology Report ---
APPROVED REPORT EKG Measurement Heart [id number] Normal sinus rhythm with sinus arrhythmia Nonspecific ST and T wave abnormality Abnormal ECG
== END 2019-01-15 21:38 | disposition home or self-care (01) ==
LOC: EMR 21:22
DX: R07.9 Chest pain, unspecified (principal); M25.512 Pain in left shoulder; N39.0 Urinary tract infection, site not specified; R20.2 Paresthesia of skin; M79.602 Pain in left arm; Z88.8 Allergy status to other drugs, medicaments and biological substances; Z91.013 Allergy to seafood; K21.9 Gastro-esophageal reflux disease without esophagitis; F17.200 Nicotine dependence, unspecified, uncomplicated
CPT/HCPCS: 36415; 71045; 80053; 80307; 81003; 81025; 82550; 83880; 84484; 85025; 85610; 85730; 87086; 93005; 96374; 96375; 99284; J1885; J2405

== ENCOUNTER 2019-02-20 07:03 | Emergency (ER) | payer OTHER ==
[~2019-02-20] VITALS: Ht 157.5 cm; Wt 103.0 kg
[~2019-02-20 07:03] MED LIST changes: +CYCLOBENZAPRINE10 MG ORAL
[2019-02-20 07:30] VITALS: BP 140/92
[2019-02-20] MEDS ORDERED: EPINEPHrine 1mg/1ml Amp SUBQ ONE (07:30)
[2019-02-20] MEDS ORDERED: Solu-MEDROL 125mg Inj IM ONE (07:30)
--- NOTE | 2019-02-20 07:30 | NUR ---
ED Nurse Note: pt walked in due to general body itchiness started 6 days ago, pt stated she doesnt know about what triggers the allergic reaction. pt stated she is taking prednisone and cream for eczema. pt able to walk without sob, able to comprehend. denies sob, pt vss. pt is seen by ermd. will continue to monitor.
--- NOTE | 2019-02-20 07:38 | NUR ---
ED Nurse Note: pt medicated as ordered, pt able to tolerate po, im and subq medication. pt denies difficulty breathing. pt vss. will continue to monitor.
--- NOTE | 2019-02-20 08:04 | Emergency Room Report ---
History of Present Illness General Chief Complaint: Skin Rash/Abscess Source: Patient, Medical Record Present Illness HPI The patient presents with itching throughout her body. It is worse on her torso and by her rear end. She believes this may be related to new soap. She has a history of eczema. She denies any fevers or chills. There is no throat swelling, dyspnea, wheezing, nausea, vomiting, diarrhea or dysuria. She is also requesting cream for her hands. No sore throat, chest pain, palpitations, abdominal pain, shortness of breath, joint pain, depression, anxiety, visual changes, headache. History of hypertension. Did not take her blood pressure medicine this morning. Allergies: Coded Allergies: SHELLFISH DERIVED (Verified Allergy, Unknown, 10/16/18) TETRACYCLINES (Verified Allergy, Unknown, 10/16/18) Patient History Past Medical History: see triage record Social History: Reports: smoking Social History Narrative with Significant other Last Menstrual Period: one month ago Now: No Reviewed Nursing Documentation: PMH: Agreed; PSxH: Agreed Nursing Documentation-PMH Past Medical History: No History, Except For Hx Hypertension: Yes Hx Asthma: Yes Hx Gastrointestinal Problems: Yes - ACID REFLUX Review of Systems All Other Systems: negative except mentioned in HPI Physical Exam Vital Signs Date Time Temp Pulse Resp B/P (MAP) Pulse Ox O2 Delivery O2 Flow Rate FiO2 02/20/19 07:21 98.1 76 19 138/93 (108) 97 Room Air Sp02 EP Interpretation: reviewed, normal General Appearance: well appearing, no apparent distress, GCS 15 Head: normocephalic Eyes: bilateral eye normal inspection, bilateral eye PERRL ENT: normal pharynx, no angioedema, normal voice, moist mucus membranes Neck: supple Respiratory: lungs clear, normal breath sounds Cardiovascular #1: regular rate, rhythm Cardiovascular #2: 2+ radial (R) Gastrointestinal: normal inspection, normal bowel sounds, non tender, no mass, non-distended Musculoskeletal: back normal, gait/station normal, normal range of motion Neurologic: alert, oriented x3, grossly normal Psychiatric: mood/affect normal Skin: normal color, rash - Ulivy-wej-qsurj along with chronic eczema's changes back of hands Medical Decision Making Diagnostic Impression: Primary Impression: Allergic reaction Qualified Codes: T78.40XA - Allergy, unspecified, initial encounter Additional Impression: Eczema Qualified Codes: L30.9 - Dermatitis, unspecified ER Course Patient presents with diffuse skin reaction. Differential includes exacerbation of eczema, go to psoriasis, cellulitis, allergic reaction amongst others. Based on the history this is most likely allergic reaction related to the new soaps. Her eczema appears to be stable. In any case because of the severe itching subcutaneous epinephrine, Benadryl and Solu-Medrol will be administered. The patient is placed on a night clerk auditor in order to observe her after the subcutaneous epinephrine. There is no evidence of anaphylaxis at this time. No laboratory tests are indicated at this time. The patient is significantly improved with decrease itching. She feels comfortable about continuing her care at home. Patient stable for outpatient observation and treatment. Last Vital Signs Date Time Temp Pulse Resp B/P (MAP) Pulse Ox O2 Delivery O2 Flow Rate FiO2 02/20/19 08:15 98.1 70 19 140/92 97 Room Air Status: improved Disposition: HOME, SELF-CARE Condition: Improved Scripts Triamcinolone Acet (Triamcinolone Acetonide) 15 Gm Cream..g. 0.15 % APPLIC BID, #30 GM Prov: Wally Luna MD 02/20/19 Diphenhydramine Hcl* (BENADRYL*) 25 Mg Capsule 25 MG ORAL Q6H PRN for Itching, #20 CAP Prov: Wally Luna MD 02/20/19 Prednisone* (PREDNISONE*) 20 Mg Tablet 40 MG ORAL DAILY, #10 TAB Prov: Wally Luna MD 02/20/19 Wally Luna MD Feb 20, 2019 08:04
[2019-02-20] MEDS ORDERED: KENALOG 0.025%15 GM APPLIC (08:08)
[2019-02-20] MEDS ORDERED: PREDNISONE20 MG ORAL (08:08)
[2019-02-20] MEDS ORDERED: BENADRYL25 MG ORAL (08:08)
[2019-02-20 08:15] VITALS: BP 140/92
--- NOTE | 2019-02-20 08:15 | NUR ---
ER DISCHARGE NOTE: Patient is cleared to be discharged per ERMD, pt is aox4, on room air, with stable vital signs. pt was given dc and prescription instructions, pt was able to verbalize understanding, pt id band removed without complications. pt is able to ambulate with steady gait. pt took all belongings.
== END 2019-02-20 08:15 | disposition home or self-care (01) ==
LOC: EMR 07:48
DX: T78.40XA Allergy, unspecified, initial encounter (principal); L30.9 Dermatitis, unspecified; X58.XXXA Exposure to other specified factors, initial encounter; Y92.9 Unspecified place or not applicable; I10 Essential (primary) hypertension; K21.9 Gastro-esophageal reflux disease without esophagitis; Z91.013 Allergy to seafood; Z88.8 Allergy status to other drugs, medicaments and biological substances; F17.200 Nicotine dependence, unspecified, uncomplicated
CPT/HCPCS: 96372; 99283; J0171; J2930

== ENCOUNTER 2019-05-05 08:40 | Emergency (ER) | payer OTHER ==
[~2019-05-05] VITALS: Ht 157.5 cm; Wt 99.8 kg
[~2019-05-05 08:40] MED LIST changes: +KENALOG 0.025%15 GM APPLIC
--- NOTE | 2019-05-05 08:52 | NUR ---
ED Nurse Note:pt. came with asthma exacerbation, audible weezing , VSS, ambulatory, A/Ox4
--- NOTE | 2019-05-05 09:09 | Emergency Room Report ---
History of Present Illness General Chief Complaint: Asthma Source: Patient Present Illness HPI This is a 53-year-old female presents after increased cough and congestion. She had prior history of asthma. She had run out of her Dulera. She had prior episodes similar to this. She reports having some increased productive cough. Yellow sputum. Denies any vomiting. Increased generalized body aches. Denies any diarrhea. Reports having some tightness to her chest. Patient is currently a smoker. Allergies: Coded Allergies: SHELLFISH DERIVED (Verified Allergy, Unknown, 10/16/18) TETRACYCLINES (Verified Allergy, Unknown, 10/16/18) Patient History Past Medical History: see triage record Last Menstrual Period: 09/26 Reviewed Nursing Documentation: PMH: Agreed; PSxH: Agreed Nursing Documentation-PMH Past Medical History: No History, Except For Hx Hypertension: Yes Hx Asthma: Yes Hx Gastrointestinal Problems: Yes - ACID REFLUX Review of Systems All Other Systems: negative except mentioned in HPI Physical Exam Vital Signs Date Time Temp Pulse Resp B/P (MAP) Pulse Ox O2 Delivery O2 Flow Rate FiO2 05/05/19 08:49 98.1 86 20 143/94 (110) 94 Room Air General Appearance: well appearing, no apparent distress, alert, GCS 15, non- toxic Head: normocephalic, atraumatic ENT: hearing grossly normal, normal voice Neck: full range of motion, supple Respiratory: no respiratory distress, speaking full sentences, wheezing Gastrointestinal: normal inspection, soft, no mass Musculoskeletal: no calf tenderness Neurologic: normal inspection, alert, oriented x3, responsive, normal gait Psychiatric: mood/affect normal Skin: no rash Medical Decision Making Diagnostic Impression: Primary Impression: Asthma exacerbation ER Course Patient presented for cough. Differential diagnosis included but was not limited to bronchitis, pneumonia, pulmonary embolism, pericarditis, asthma, foreign body. Patient appears to have some exacerbation of her asthma which is likely due to stopping her inhaler. patient has a benign exam and does not appear to require any imaging or laboratory testing at this time. Patient was given oral steroids as well as breathing treatments. She was noted to be menopausal with last period of approximately 6 months ago. Patient was given breathing treatments with improvement in her wheezing. At the time of discharge patient was moving air well and had minimal wheezing. She is given prescription for oral antibiotics as well as steroids as well as Dulera. Patient is to return if she had worsening condition or other concerns. EKG Diagnostic Results Rate: normal - 74 Rhythm: NSR ST Segments: no acute changes Last Vital Signs Date Time Temp Pulse Resp B/P (MAP) Pulse Ox O2 Delivery O2 Flow Rate FiO2 05/05/19 08:49 98.1 86 20 143/94 (110) 94 Room Air Status: improved Disposition: HOME, SELF-CARE Condition: Stable Scripts Amoxicillin* (AMOXIL*) 500 Mg Capsule 500 MG ORAL THREE TIMES A DAY, #21 CAP Prov: Adam Davis MD 05/05/19 Mometasone/Formoterol (DULERA 100 MCG/5 MCG INHALER) 13 Gm Hfa.aer.ad 2 PUFFS INH EVERY 12 HOURS, #1 INH Prov: Adam Davis MD 05/05/19 Prednisone* (PREDNISONE*) 20 Mg Tablet 40 MG ORAL DAILY, #10 TAB Prov: Adam Davis MD 05/05/19 Adam Davis MD May 05, 2019 09:09
[2019-05-05] MEDS ORDERED: PREDNISONE20 MG ORAL ×2 (09:11→09:14)
[2019-05-05] MEDS ORDERED: DULERA 100 MCG/13 GM INH (09:14)
[2019-05-05] MEDS ORDERED: AMOXICILLIN500 MG ORAL (09:14)
[2019-05-05] MEDS ORDERED: Albuterol/Ipratropium 3ml neb HHN ONE (09:15)
[2019-05-05] MEDS ORDERED: Acetaminophen 500mg (ES) tab ORAL ONE (09:15)
[2019-05-05 09:17] VITALS: BP 143/94
--- NOTE | 2019-05-05 09:17 | NUR ---
ED Nurse Note:EKG, PO meds and breathing treatment were given, pt. connected to school lunch monitor
[2019-05-05] MEDS ORDERED: Albuterol 90mcg Inhaler 8gm INH ONE (09:45)
[2019-05-05] MEDS ORDERED: Albuterol ud Inhalation HHN ONE (10:15)
[2019-05-05 10:25] VITALS: BP 126/83
--- NOTE | 2019-05-05 10:25 | NUR ---
ER DISCHARGE NOTE: Patient is cleared to be discharged per ERMD, pt is aox4, on room air, with stable vital signs. pt was given dc and prescription instructions, pt was able to verbalize understanding, pt is able to ambulate with steady gait. pt took all belongings.
[2019-05-05 10:42] VITALS: BP 143/94
--- NOTE | 2019-05-08 16:57 | Cardiology Report ---
APPROVED REPORT EKG Measurement Heart [id number] Normal sinus rhythm Possible Anterior infarct, age undetermined Abnormal ECG
== END 2019-05-05 10:42 | disposition home or self-care (01) ==
LOC: EMR 09:00
DX: J45.901 Unspecified asthma with (acute) exacerbation (principal); I10 Essential (primary) hypertension; K21.9 Gastro-esophageal reflux disease without esophagitis; Z91.013 Allergy to seafood; Z88.1 Allergy status to other antibiotic agents; F17.200 Nicotine dependence, unspecified, uncomplicated
CPT/HCPCS: 93005; 94640; 94664; J7512; Z7502; 99283; J7620

== ENCOUNTER 2019-08-31 22:37 | Emergency (ER) | payer OTHER ==
[~2019-08-31] VITALS: Ht 157.5 cm; Wt 99.8 kg
[~2019-08-31 22:37] MED LIST changes: +DULERA 100 MCG/13 GM INH
--- NOTE | 2019-08-31 23:11 | Emergency Room Report ---
History of Present Illness General Chief Complaint: Lower Back Pain or Injury Present Illness HPI Disclaimer: Please note that this report is being documented using [employer] technology. This can lead to erroneous entry secondary to incorrect interpretation by the dictating instrument. HPI: The of chronic lower back pain and sciatica presents for evaluation of left -sided back pain. Symptoms began a few days ago that they have been intermittent for several months. States that over the past 2 days she has had a worsening left-sided gluteal pain that radiates down the dorsum of the left leg and across the left knee. States it is worse with bending and twisting motions. He denies any urinary retention, fecal incontinence, weakness in the lower extremities or changes in sensation. Denies any new trauma or injury. Patient has a scheduled MRI arranged by her PMD. Allergies: Coded Allergies: SHELLFISH DERIVED (Verified Allergy, Unknown, 10/16/18) TETRACYCLINES (Verified Allergy, Unknown, 10/16/18) Nursing Documentation-PMH Hx Hypertension: Yes Hx Asthma: Yes Hx Gastrointestinal Problems: Yes - ACID REFLUX Review of Systems All Other Systems: negative except mentioned in HPI Physical Exam Vital Signs Date Time Temp Pulse Resp B/P (MAP) Pulse Ox O2 Delivery O2 Flow Rate FiO2 08/31/19 22:52 98.1 77 16 167/117 (134) 98 Room Air General: Awake and alert, no acute distress HEENT: NC/AT. EOMI. Resp: Normal work of breathing Skin: Intact. No abrasions, laceration or rash over the exposed skin MSK: Normal tone and bulk. Moving all extremities. No obvious deformity. There is mild tenderness over the superior gluteal going around the lateral aspect of the left thigh. No obvious deformity. Patient is able to ambulate. No midline tenderness in the lumbosacral spine. No step-off or deformities. Neuro: Awake and alert. Mentating appropriately. Sensation intact over the dermatomes of the lower extremities bilaterally. Medical Decision Making Diagnostic Impression: Primary Impression: Sciatic leg pain ER Course Is a 53-year-old female presenting for evaluation of left-sided lower back pain rating down the left leg. Differential includes but is not limited to peripheral radiculopathy, sciatica, disc disease, lumbar stenosis. No evidence of acute injury; do not believe she requires emergent imaging at this time. The patient has had similar symptoms in the past. Will treat with continued ibuprofen which the patient has at home. Will add prednisone, methocarbamol and lidocaine patches. She can follow-up with her PMD as scheduled. New or worsening symptoms. Last Vital Signs Date Time Temp Pulse Resp B/P (MAP) Pulse Ox O2 Delivery O2 Flow Rate FiO2 08/31/19 22:52 98.1 77 16 167/117 (134) 98 Room Air Disposition: HOME, SELF-CARE Condition: Stable Scripts Lidocaine Patch* (Lidoderm Patch*) 1 Each Adh..patch 1 PATCH TOPIC DAILY, #10 PATCH Patch(es) may remain in place for up to 12 hours in any 24-hour period. Prov: Orestes Rodriguez MD 08/31/19 Methocarbamol* (ROBAXIN-750*) 750 Mg Tablet 750 MG PO QID, #28 TAB 0 Refills Prov: Orestes Rodriguez MD 08/31/19 Prednisone* (PREDNISONE*) 20 Mg Tablet 40 MG ORAL DAILY for 5 Days, #10 TAB Prov: Orestes Rodriguez MD 08/31/19 Orestes Rodriguez MD Aug 31, 2019 23:11
[2019-08-31] MEDS ORDERED: ROBAXIN-750750 MG PO (23:12)
[2019-08-31] MEDS ORDERED: LIDODERM700 M1 TOPIC (23:12)
[2019-08-31] MEDS ORDERED: PREDNISONE20 MG ORAL (23:12)
[2019-08-31 23:20] VITALS: BP 167/117
[2019-08-31] MEDS ORDERED: Methocarbamol 750mg tab ORAL ONE (23:30)
== END 2019-09-01 01:10 | disposition home or self-care (01) ==
LOC: EMR 23:28
DX: M54.32 Sciatica, left side (principal); I10 Essential (primary) hypertension; K21.9 Gastro-esophageal reflux disease without esophagitis; Z88.8 Allergy status to other drugs, medicaments and biological substances
CPT/HCPCS: 99282

== ENCOUNTER 2019-10-07 15:55 | Emergency (ER) | payer SELFPAY ==
[~2019-10-07] VITALS: Ht 177.8 cm; Wt 102.5 kg
[~2019-10-07 15:55] MED LIST changes: +LIDODERM700 M1 TOPIC
[2019-10-07 16:10] VITALS: BP 134/89
--- NOTE | 2019-10-07 16:10 | NUR ---
ED Nurse Note: Pt walked in from home c/o right hand pain. Pt says she has eczema and the pain has worsened. Respirations even and unlabored on room air. VSS. A+Ox4
--- NOTE | 2019-10-07 16:29 | NUR ---
ED Nurse Note: ED PA @ bedside
--- NOTE | 2019-10-07 16:35 | NUR ---
Gia maher in EDM - 10/07/19 at 1635 by BILLY ED Nurse Note: ED PA @ bedside
--- NOTE | 2019-10-07 16:39 | Emergency Room Report ---
History of Present Illness General Chief Complaint: Skin Rash/Abscess Source: Patient Present Illness HPI 54-year-old female presents to the emergency department complaining of 7 out of 10 severity pain, burning, tender cracking rash to the bilateral hands dorsally x1 week. 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 Pt. denies fevers, chills or swollen tender lymph nodes. Denies lesions/rashes elsewhere on the body. Denies new medications or body washes or creams. Denies swelling of the lips, tongue , throat or airway. Denies wheezing, or shortness of breath. Denies recent travel , recent illness or ill contacts. denies blisters, oral lesions, or sloughing of the skin. Patient states that she has been using Atarax, and 1% hydrocortisone cream at home in addition to eczema specific lotion which has not providing relief of her symptoms. Allergies: Coded Allergies: SHELLFISH DERIVED (Verified Allergy, Unknown, 10/16/18) TETRACYCLINES (Verified Allergy, Unknown, 10/16/18) COVID-19 Screening Contact w/high risk pt: No Recent Travel to affected area: No Experienced COVID-19 symptoms?: No Patient History Past Medical History: see triage record Past Surgical History: none Pertinent Family History: none Now: No Reviewed Nursing Documentation: PMH: Agreed; PSxH: Agreed Nursing Documentation-PMH Past Medical History: No History, Except For Hx Hypertension: Yes Hx Asthma: Yes Hx Gastrointestinal Problems: Yes - ACID REFLUX Review of Systems All Other Systems: negative except mentioned in HPI Physical Exam Vital Signs Date Time Temp Pulse Resp B/P (MAP) Pulse Ox O2 Delivery O2 Flow Rate FiO2 10/07/19 15:59 97.3 74 17 137/94 (108) 98 Room Air Sp02 EP Interpretation: reviewed, normal General Appearance: no apparent distress, alert, GCS 15, non-toxic Head: normocephalic, atraumatic Eyes: bilateral eye normal inspection, bilateral eye PERRL ENT: hearing grossly normal, normal voice Neck: full range of motion, other - No stridor Respiratory: chest non-tender, lungs clear, normal breath sounds, no respiratory distress, no accessory muscle use, no wheezing, speaking full sentences Cardiovascular #1: regular rate, rhythm, no edema, normal capillary refill Musculoskeletal: normal range of motion, gait/station normal, non-tender Neurologic: alert, motor strength/tone normal, oriented x3, sensory intact, responsive, speech normal Psychiatric: judgement/insight normal Skin: rash - Dry cracking hyper pigmented and hyperkeratotic rash to the dorsum of the hands bilaterally. No blisters or vesicles. No erythema or warmth. No purulent discharge noted. Lymphatic: no adenopathy Medical Decision Making PA Attestation Dr. Davis is my supervising Physician whom patient management has been discussed with. Diagnostic Impression: Primary Impression: Eczema of both hands ER Course 54-year-old female presents to the emergency department complaining of 7 out of 10 severity pain, burning, tender cracking rash to the bilateral hands dorsally x1 week. 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 Pt. denies fevers, chills or swollen tender lymph nodes. Denies lesions/rashes elsewhere on the body. Denies new medications or body washes or creams. Denies swelling of the lips, tongue , throat or airway. Denies wheezing, or shortness of breath. Denies recent travel , recent illness or ill contacts. denies blisters, oral lesions, or sloughing of the skin. Patient states that she has been using Atarax, and 1% hydrocortisone cream at home in addition to eczema specific lotion which has not providing relief of her symptoms. Ddx considered but are not limited to cellulitis, scabies, shingles, varicella, dermatitis, urticaria, eczema, tinea, viral exanthem, SJS Vital signs: are WNL, pt. is afebrile H&PE are most consistent with Moderate exacerbation of eczema to the dorsum of the hands bilaterally. No evidence of secondary cellulitic infection or viral exanthem. ORDERS: none required at this time, the diagnosis is clinical ED INTERVENTIONS: None required at this time. -I do not identify an emergent condition at this time. With current presentation , pt. is stable for close outpatient follow up and conservative treatment. D/ w pt. to return promptly to ED with worsening or new symptoms.- Pt. verbalizes' understanding and agreement with proposed treatment plan. Patient is instructed to make contact with/follow-up appointment with automatic buffer or her PCP. DISCHARGE: At this time pt. is stable for d/c to home. Will provide printed patient care instructions, and any necessary prescriptions. Care plan and follow up instructions have been discussed with the patient prior to discharge. Last Vital Signs Date Time Temp Pulse Resp B/P (MAP) Pulse Ox O2 Delivery O2 Flow Rate FiO2 10/07/19 15:59 97.3 74 17 137/94 (108) 98 Room Air Disposition: HOME, SELF-CARE Patient Instructions: Eczema Additional Instructions: Take medications as directed. Follow up with a Primary Care Provider in 3-5 days for DERMATOLOGY REFERRAL , even if your symptoms have resolved. --Please review list of primary care clinics, if you do not already have a primary care provider Return sooner to ED if new symptoms occur, or current symptoms become worse. - Please note that this Emergency Department Report was dictated using [employer] tier technology software, occasionally this can lead to erroneous entry secondary to interpretation by the dictation equipment. Dhara Manrique Oct 07, 2019 16:39
[2019-10-07] MEDS ORDERED: PREDNISONE20 MG ORAL (16:41)
[2019-10-07] MEDS ORDERED: TRIAMCINOLONE A15 G1 TP (16:41)
[2019-10-07 17:00] VITALS: BP 138/92
--- NOTE | 2019-10-07 17:00 | NUR ---
ER DISCHARGE NOTE: Patient is cleared to be discharged per ERMD, pt is aox4, on room air, with stable vital signs as documented. pt was given dc and prescription instructions, pt was able to verbalize understanding, pt id band removed. pt is able to ambulate with steady gait. pt took all belongings.
== END 2019-10-07 17:00 | disposition home or self-care (01) ==
LOC: EMR 16:45
DX: L30.9 Dermatitis, unspecified (principal); I10 Essential (primary) hypertension; K21.9 Gastro-esophageal reflux disease without esophagitis; Z91.013 Allergy to seafood
CPT/HCPCS: 99281

== ENCOUNTER 2019-11-30 20:14 | Emergency (ER) | payer SELFPAY ==
[~2019-11-30] VITALS: Ht 157.5 cm; Wt 104.3 kg
[~2019-11-30 20:14] MED LIST changes: +TRIAMCINOLONE A15 G1 TP
[2019-11-30 20:21] VITALS: BP 144/100
--- NOTE | 2019-11-30 20:21 | NUR ---
ED Nurse Note: PT walked in to ed for C/O eczema to bilateral hands x 2 weeks. PT been applying triamcinolone cream and aquaphor but is ineffective.
[2019-11-30] MEDS ORDERED: PREDNISONE20 MG ORAL (20:30)
[2019-11-30] MEDS ORDERED: BETAMETHASONE V TP (20:30)
[2019-11-30 20:33] VITALS: BP 150/105
--- NOTE | 2019-11-30 20:35 | Emergency Room Report ---
History of Present Illness General Chief Complaint: Skin Rash/Abscess Source: Patient Present Illness HPI Patient is a 54-year-old female past medical history of eczema who presents to the ER complaining of eczema rash to both of her hands. 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 Patient denies any fever or chills. She denies any discharge from her hands. She denies any swelling or redness. She just complains of dry cracked hands bilaterally. Allergies: Coded Allergies: SHELLFISH DERIVED (Verified Allergy, Unknown, 10/16/18) TETRACYCLINES (Verified Allergy, Unknown, 10/16/18) COVID-19 Screening Contact w/high risk pt: No Recent Travel to affected area: No Experienced COVID-19 symptoms?: No COVID-19 Testing performed PLOW MECHANIC: No Patient History Last Menstrual Period: nA Now: No Reviewed Nursing Documentation: PMH: Agreed; PSxH: Agreed Nursing Documentation-PMH Past Medical History: No History, Except For Hx Hypertension: Yes Hx Asthma: Yes Hx Gastrointestinal Problems: Yes - ACID REFLUX Review of Systems All Other Systems: negative except mentioned in HPI Physical Exam Vital Signs Date Time Temp Pulse Resp B/P (MAP) Pulse Ox O2 Delivery O2 Flow Rate FiO2 11/30/19 20:17 98.1 84 18 151/113 (126) 97 Room Air Sp02 EP Interpretation: reviewed, normal General Appearance: no apparent distress, alert, GCS 15, non-toxic Head: normocephalic, atraumatic Eyes: bilateral eye normal inspection, bilateral eye PERRL ENT: hearing grossly normal, normal pharynx, no angioedema, normal voice Neck: full range of motion, supple/symm/no masses Respiratory: chest non-tender, lungs clear, normal breath sounds, speaking full sentences Cardiovascular #1: regular rate, rhythm, no edema Gastrointestinal: normal bowel sounds, non tender, soft, non-distended, no guarding, no rebound Rectal: deferred Genitourinary: normal inspection, no CVA tenderness Musculoskeletal: normal inspection Neurologic: alert, motor strength/tone normal, oriented x3, sensory intact, responsive, speech normal Psychiatric: no suicidal/homicidal ideation Skin: other - Dry cracked hands bilaterally with excoriations. Normal range of motion. No swelling or discharge. Lymphatic: no adenopathy Medical Decision Making Diagnostic Impression: Primary Impression: Acute eczema ER Course Patient given prescription for oral and topical steroids. Advised to use gentle soap and water instead of hand fur ironer when possible as the alcohol and the hand fur ironer will worsen her symptoms. She states that she does have Aquaphor at home. After discussing risks and benefits of further diagnostics, treatment plans, as well as indications for and risks of admission, the patient is agreeable to being discharged home. I have explained that their evaluation and treatment in the emergency department today is an important step towards them achieving better health but that their evaluation today is not intended to replace further evaluation and treatment by a physician in their local clinic. I have explained that while the current findings suggest no immediate life threatening emergency they will require further evaluation and treatment by a physician of their choice in their area. They understand that it will be necessary for them to review the final reports of their ED visit with their clinic physician. We have reviewed indications for return to the Emergency Department. I have explained that additional time may need to pass and/or additional testing as an outpatient may be necessary before a definitive diagnosis can be made. They tell me they are willing to follow up as instructed within the timeframe I recommend. They appear to understand what we discussed. Additionally they understand that if they are unable to be seen by an outpatient physician they are welcome, and in fact should, return to the Emergency Department for a repeat evaluation. The patient is stable at time of discharge. Last Vital Signs Date Time Temp Pulse Resp B/P (MAP) Pulse Ox O2 Delivery O2 Flow Rate FiO2 11/30/19 20:17 98.1 84 18 151/113 (126) 97 Room Air Disposition: HOME, SELF-CARE Condition: Stable Scripts Betamethasone Valerate (Betamethasone Valerate) 45 Gm Cream..g. 45 GM TP BID for 14 Days, GM Prov: Ester Magaña M.D. 11/30/19 Prednisone* (PREDNISONE*) 20 Mg Tablet 40 MG ORAL DAILY, #5 TAB Prov: Ester Magaña M.D. 11/30/19 Referrals: [facility] Arielle Mcknight [facility] Patient Instructions: Hand Dermatitis, [id number] Additional Instructions: The patient was provided with discharge instructions, notified to follow-up with a primary care doctor and or specialist in the next 24-48 hours, and to return to the ED if they have worsening of their symptoms. Please note that this report is being documented using [employer] technology. This can lead to erroneous entry secondary to incorrect interpretation by the dictating instrument. Ester Magaña M.D. November 30, 2019 20:35
== END 2019-11-30 20:33 | disposition home or self-care (01) ==
LOC: EMR 20:25
DX: L30.9 Dermatitis, unspecified (principal); I10 Essential (primary) hypertension; J45.909 Unspecified asthma, uncomplicated; K21.9 Gastro-esophageal reflux disease without esophagitis; Z91.013 Allergy to seafood; Z88.1 Allergy status to other antibiotic agents
CPT/HCPCS: 99282